=== PATIENT | female | born 1985 | race Caucasian/White ===

== ENCOUNTER → 2018-06-03 | Outpatient (CLI) | payer MEDICAID ==
[2015-06-14 14:25] VITALS: BMI 33.4
[~2018-06-03] MED LIST: ALB18R INH; ALBU2.5V36 IH; ALBU2.5V36 INH; ALP1 PO; AMOX-362 PO; AMPH10TA20 PO; ARIP2TAB9 PO; AZI250 PO; AZM25R INH; BENZ1 PO; BUP150 PO; BUP75 PO; BUPR-126 PO; BUPR-474 PO; BUPR200T18 PO; BUPXL150 PO; CEP500 PO; CHOL10005 PO; CIPR-344 PO; DIV500 PO; DIVA-1 PO; DIVA500T47 PO; DIVA500T98 PO; DIVSR125 PO; DOCU-416 PO; DOCU100T19 PO; DOCU240C67 PO; DUONEB INH; FLUT1DIS28 IH; GUAI-334 PO; HYDR-653 PO; HYDR25CA83 PO; HYDR50CA47 PO; IBU200 PO; IBU800 PO; IBUP600T22 PO; IBUP800T37 PO; IMITREX PO; IOPAMIDOL 76% 75 ML INFUS BTL 75 ML ONE; LAMO100T56 PO; LAMO50TA PO; LAMOT150PT PO; LEVO100T95 PO; LEVO25TA57 PO; LEVO75TA68 PO; LOR05 PO; LOR10 PO; LOR5/325 PO; LURA20TA PO; MIRT-1 PO; MULT-7; MULT-865 PO; NO ROUTINE MEDS; OLAN10TA21 PO; OLAN5TAB25 PO; ONDA4TAB PO; OXYC-865 PO; OXYC-944 PO; PARO-242 PO; PENI-24 PO; PER PO; PHEN200T32 PO; PRE20 PO; PRED20TA6 PO; PREN-85 PO; PROM-110 PO; ROBC PO; SULF-198 PO; TOPI-120 PO; TRAM-420 PO; TRAZ50TA34 PO
--- NOTE | 2018-06-03 12:22 | RADIOLOGY IMAGING REPORT ---
FAC[place] [facility] [place]IENT NAME: Justine Palomino : 1985 MR: [id number] V: [id number] EXAM DATE: ORDERING PHYSICIAN: BRITNEY AYERS TECHNOLOGIST: Location: [facility] - [place] Patient: Justine Palomino : 1985 Visit/Account:[id number] Date of Sevice: 06/03/2018 ABDOMEN/PELVIS WITH CONTRAST HISTORY: Abdominal pain, abnormal weight loss TECHNIQUE: CT abdomen and pelvis with intravenous contrast. Contiguous axial images of the abdomen and pelvis was performed from the lung bases to the symphysis pubis. One of the following dose optimization techniques was utilized in the performance of this exam: Autom ated exposure control; adjustment of the mA and/or kV according to the patient's size; or use of an i terative reconstruction technique. Specific details can be referenced in the facility's radiology C T exam operational policy. CONTRAST: 75 cc of Isovue-370 COMPARISON: CT scan 06/10/2016 FINDINGS: Visualized lung bases: Negative. Hepatobiliary: There is fatty infiltration of the liver. Gallbladder is absent. Bile ducts are dec ompressed. Spleen: Negative. Adrenals: Negative. Kidneys/: Negative. Pancreas: Negative. GI: The appendix is normal. No bowel obstruction or focal inflammation. Vessels/spaces/nodes: Negative. Bones/soft tissues: Asymmetry in the left rectal sling is unchanged from prior exam. IMPRESSION: 1. No acute pathology in the abdomen or pelvis. 2. Fatty infiltration of the liver. Report Dictated By: Antoni Campos MD at 06/03/2018 12:13 PM Report E-Signed By: Antoni Campos MD at 06/03/2018 12:19 PM WSN:[id number]
== END ==
LOC: CT 10:09
PROVIDERS: ATTEND Nurse Practitioner Family
DX: K76.0 Fatty (change of) liver, not elsewhere classified (principal); Z90.49 Acquired absence of other specified parts of digestive tract
CPT/HCPCS: 74177; Q9967

== ENCOUNTER 2018-06-08 18:00 | Emergency (ER) | payer MEDICAID ==
[2015-06-14 14:25] VITALS: Wt 99.8 kg
[~2018-06-08 18:00] MED LIST changes: -MULT-1379 PO
--- NOTE | 2018-06-08 18:08 | ER Report ---
History and Physical Time Seen By MD: 18:05 Hx. of Stated Complaint: ADMITS TO METH USE TODAY - APPEARS ANXIOUS AND TEARFUL. STATES THAT SHE CANNOT MOVE. HPI/ROS CHIEF COMPLAINT: Methamphetamine abuse HISTORY OF PRESENT ILLNESS: 32-year-old female brought in by EMS stating she was unable to move. Patient admits to a drug holiday weekend of doing methamphetamine. She hasn't done it for 2 years. She admits she thought she would just have a fun weekend. I think she did methamphetamine to excess. She's having adverse reaction. She is coming down off methamphetamine after doing her last dose at 5:30 AM. She's not slept in almost 72 hours. Patient's been having panic attacks all day. And hallucinating. Patient denies headache, stiff neck, fever or chills. Patient denies nausea or vomiting. Patient denies other drug use such as marijuana or alcohol. Patient notes no chest pain or shortness of breath. REVIEW OF SYSTEMS: Respiratory: No cough, no dyspnea. Cardiovascular: No chest pain, no palpitations. Gastrointestinal: No vomiting, no abdominal pain. Musculoskeletal: No back pain. Allergies: Coded Allergies: ketorolac (Verified Allergy, Intermediate, SHORTNESS OF BREATH, RASH, 06/21/17) adhesive (Verified Allergy, Mild, 06/21/17) Home Meds Discontinued Reported Medications Albuterol Sulfate 0.083% (ALBUTEROL SULFATE 0.083%) 2.5 Mg/3 Ml Vial.neb, 2.5 MG INH, INH 12/27/16 Albuterol Sulfate (VENTOLIN HFA) 18 Gm Inh, 2 PUFF INH Q4-6H, INH 07/19/16 Fluticasone/Salmeterol (ADVAIR 250-50 DISKUS) 1 Each Disk.w.dev, 1 EACH IH BID 07/19/16 Discontinued Scripts Ibuprofen (IBUPROFEN) 800 Mg Tablet, 800 MG PO Q8H PRN for PAIN, #30 TAB 1 Refill Prov:SAMIRA CORONADO DO 11/10/16 Reviewed Nurses Notes: Yes Old Medical Records Reviewed: Yes Hx Smoking: Yes (ONE PACK A WEEK AND USES A VAPOR ) Smoking Status: Current: Every Day Smoker Exposure to Second Hand Smoke?: No Hx Substance Use Disorder: Yes (IN THE PAST) Hx Alcohol Use: Yes Constitutional Vital Sign - Last 24 Hours 06/08/18 06/08/18 06/08/18 06/08/18 18:02 18:02 19:56 20:36 Temp 97.8 Pulse 136 82 Resp 28 B/P (MAP) 118/102 102/83 (89) Pulse Ox 99 97 O2 Delivery Nasal Cannula Room Air O2 Flow Rate 2.0 06/08/18 06/08/18 06/08/18 06/08/18 21:06 21:51 22:07 22:28 Pulse 94 81 79 94 Resp 16 16 B/P (MAP) 115/79 (91) 105/75 (85) 107/75 (86) 99/74 (82) Pulse Ox 94 96 96 93 O2 Delivery Room Air Room Air Room Air Room Air 06/08/18 06/09/18 06/09/18 22:44 00:01 00:31 Pulse 80 75 Resp 16 B/P (MAP) 98/63 (75) 105/72 (83) 113/62 (79) Pulse Ox 94 86 90 O2 Delivery Room Air Room Air Room Air Physical Exam Vital signs stable, afebrile, pulse ox normal General Appearance: The patient is alert, has no immediate need for airway protection and no current signs of toxicity., Mild agitation with rambling speech. Patient however states she's relaxed. HEENT: Pupils equal and round no injection. TMs normal, oropharynx without redness or exudate, mucous. Membranes are moist. No evidence of meth periodontal disease. Respiratory: Chest is non tender, lungs are clear to auscultation. No wheezing or rails Cardiac: regular rate and rhythm Gastrointestinal: Abdomen is soft and non tender, no masses, bowel sounds normal. Musculoskeletal: Neck: Neck is supple and non tender. Extremities have full range of motion and are non tender. Skin: No rashes or lesions. DIFFERENTIAL DIAGNOSIS: After history and physical exam differential diagnosis was considered for depression including functional and major depression, situational depression, medication side effect, polar disorder, schizophrenia, hallucinations, substance withdrawal drugs and alcohol abuse. Medical Decision Making Data Points Result Diagram: 06/08/18175406/08/181754 Laboratory Hematology Test 06/08/18 17:55 06/08/18 23:39 Red Blood Count 5.71 M/uL (4.17-5.56) Mean Corpuscular Volume 94.1 fL (80.0-96.0) Mean Corpuscular Hemoglobin 33.4 pg (26.0-33.0) Mean Corpuscular Hemoglobin Concent 35.4 g/dL (32.0-36.0) Red Cell Distribution Width 12.6 % (11.5-14.5) Mean Platelet Volume 9.2 fL (7.2-11.1) Neutrophils (%) (Auto) 66.6 % (39.4-72.5) Lymphocytes (%) (Auto) 23.0 % (17.6-49.6) Monocytes (%) (Auto) 6.3 % (4.1-12.4) Eosinophils (%) (Auto) 3.6 % (0.4-6.7) Basophils (%) (Auto) 0.5 % (0.3-1.4) Nucleated RBC Relative Count (auto) 0.2 /100WBC Neutrophils # (Auto) 9.0 K/uL (2.0-7.4) Lymphocytes # (Auto) 3.1 K/uL (1.3-3.6) Monocytes # (Auto) 0.9 K/uL (0.3-1.0) Eosinophils # (Auto) 0.5 K/uL (0.0-0.5) Basophils # (Auto) 0.1 K/uL (0.0-0.1) Nucleated RBC Absolute Count (auto) 0.03 K/uL Sodium Level 141 mmol/L (137-145) Potassium Level 3.3 mmol/L (3.5-5.0) Chloride Level 103 mmol/L (98-107) Carbon Dioxide Level 23 mmol/L (22-31) Blood Urea Nitrogen 11 mg/dl (7-18) Creatinine 1.00 mg/dl (0.52-1.04) Glomerular Filtration Rate Calc > 60.0 Random Glucose 110 mg/dl (75-110) Calcium Level 10.3 mg/dl (8.4-10.2) Total Bilirubin 3.3 mg/dl (0.2-1.3) Aspartate Amino Transf (AST/SGOT) 35 U/L (0-35) Alanine Aminotransferase (ALT/SGPT) 57 U/L (0-56) Alkaline Phosphatase 111 U/L (0-126) Troponin I < 0.012 ng/ml Total Protein 9.1 g/dl (6.3-8.2) Albumin 5.0 g/dl (3.5-5.0) Urine Color Jayna Urine Clarity Slightly-cloudy Urine pH 5.0 pH (4.8-9.5) Urine Specific [place] 1.024 Urine Protein 30 mg/dL (NEGATIVE) Urine Glucose (UA) Negative mg/dL (NEGATIVE) Urine Ketones 20 mg/dL (NEGATIVE) Urine Blood Negative (NEGATIVE) Urine Nitrite Negative (NEGATIVE) Urine Bilirubin Negative (NEGATIVE) Urine Urobilinogen 2.0 mg/dL (0.2-1.9) Urine Leukocyte Esterase Negative (NEGATIVE) Urine RBC <1 /HPF (0-2/HPF) Urine WBC 2 /HPF (0-5/HPF) Urine Squamous Epithelial Cells Many /LPF (</=FEW) Urine Bacteria Few /HPF (NONE-FEW) Urine Hyaline Casts Many /LPF (NONE-FEW) Urine Mucus Few /HPF (NONE-FEW) Urine Opiates Screen Negative Urine Barbiturates Screen Negative Ur Tricyclic Antidepressants Screen Negative Urine Phencyclidine Screen Negative Urine Amphetamines Screen Positive Urine Benzodiazepines Screen Positive Urine Cocaine Screen Negative Urine Cannabinoids Screen Negative Chemistry Test 06/08/18 17:55 06/08/18 23:39 White Blood Count 13.6 k/uL (4.5-11.0) Red Blood Count 5.71 M/uL (4.17-5.56) Hemoglobin 19.0 g/dL (12.0-16.0) Hematocrit 53.7 % (34.0-47.0) Mean Corpuscular Volume 94.1 fL (80.0-96.0) Mean Corpuscular Hemoglobin 33.4 pg (26.0-33.0) Mean Corpuscular Hemoglobin Concent 35.4 g/dL (32.0-36.0) Red Cell Distribution Width 12.6 % (11.5-14.5) Platelet Count 311 K/uL (150-450) Mean Platelet Volume 9.2 fL (7.2-11.1) Neutrophils (%) (Auto) 66.6 % (39.4-72.5) Lymphocytes (%) (Auto) 23.0 % (17.6-49.6) Monocytes (%) (Auto) 6.3 % (4.1-12.4) Eosinophils (%) (Auto) 3.6 % (0.4-6.7) Basophils (%) (Auto) 0.5 % (0.3-1.4) Nucleated RBC Relative Count (auto) 0.2 /100WBC Neutrophils # (Auto) 9.0 K/uL (2.0-7.4) Lymphocytes # (Auto) 3.1 K/uL (1.3-3.6) Monocytes # (Auto) 0.9 K/uL (0.3-1.0) Eosinophils # (Auto) 0.5 K/uL (0.0-0.5) Basophils # (Auto) 0.1 K/uL (0.0-0.1) Nucleated RBC Absolute Count (auto) 0.03 K/uL Glomerular Filtration Rate Calc > 60.0 Calcium Level 10.3 mg/dl (8.4-10.2) Total Bilirubin 3.3 mg/dl (0.2-1.3) Aspartate Amino Transf (AST/SGOT) 35 U/L (0-35) Alanine Aminotransferase (ALT/SGPT) 57 U/L (0-56) Alkaline Phosphatase 111 U/L (0-126) Troponin I < 0.012 ng/ml Total Protein 9.1 g/dl (6.3-8.2) Albumin 5.0 g/dl (3.5-5.0) Urine Color Jayna Urine Clarity Slightly-cloudy Urine pH 5.0 pH (4.8-9.5) Urine Specific [place] 1.024 Urine Protein 30 mg/dL (NEGATIVE) Urine Glucose (UA) Negative mg/dL (NEGATIVE) Urine Ketones 20 mg/dL (NEGATIVE) Urine Blood Negative (NEGATIVE) Urine Nitrite Negative (NEGATIVE) Urine Bilirubin Negative (NEGATIVE) Urine Urobilinogen 2.0 mg/dL (0.2-1.9) Urine Leukocyte Esterase Negative (NEGATIVE) Urine RBC <1 /HPF (0-2/HPF) Urine WBC 2 /HPF (0-5/HPF) Urine Squamous Epithelial Cells Many /LPF (</=FEW) Urine Bacteria Few /HPF (NONE-FEW) Urine Hyaline Casts Many /LPF (NONE-FEW) Urine Mucus Few /HPF (NONE-FEW) Urine Opiates Screen Negative Urine Barbiturates Screen Negative Ur Tricyclic Antidepressants Screen Negative Urine Phencyclidine Screen Negative Urine Amphetamines Screen Positive Urine Benzodiazepines Screen Positive Urine Cocaine Screen Negative Urine Cannabinoids Screen Negative Toxicology Test 06/08/18 23:39 Urine Opiates Screen Negative Urine Barbiturates Screen Negative Ur Tricyclic Antidepressants Screen Negative Urine Phencyclidine Screen Negative Urine Amphetamines Screen Positive Urine Benzodiazepines Screen Positive Urine Cocaine Screen Negative Urine Cannabinoids Screen Negative Urinalysis Test 06/08/18 23:39 Urine Color Jayna Urine Clarity Slightly-cloudy Urine pH 5.0 pH (4.8-9.5) Urine Specific [place] 1.024 Urine Protein 30 mg/dL (NEGATIVE) Urine Glucose (UA) Negative mg/dL (NEGATIVE) Urine Ketones 20 mg/dL (NEGATIVE) Urine Blood Negative (NEGATIVE) Urine Nitrite Negative (NEGATIVE) Urine Bilirubin Negative (NEGATIVE) Urine Urobilinogen 2.0 mg/dL (0.2-1.9) Urine Leukocyte Esterase Negative (NEGATIVE) Urine RBC <1 /HPF (0-2/HPF) Urine WBC 2 /HPF (0-5/HPF) Urine Squamous Epithelial Cells Many /LPF (</=FEW) Urine Bacteria Few /HPF (NONE-FEW) Urine Hyaline Casts Many /LPF (NONE-FEW) Urine Mucus Few /HPF (NONE-FEW) EKG/Imaging EKG Interpretation 12 lead EK Rhythm: normal sinus rhythm [place]: normal QRS: normal ST segments: normal, no evidence of ischemia or dysrhythmia Imaging Results: CT scan of the head without contrast was obtained. The results of the study are no acute findings. The study was read by the radiologist. I viewed the images myself on the PACS system. ED Course/Re-evaluation Clinical Indication for ER IV: Hydration, IV Access ED Course Patient was admitted to an examination room by EMS. H&P was done. The differential diagnoses was considered. On clinical examination. Patient has a nonfocal neurologic examination. She is agitated and have an anxiety. Likely withdrawals from methamphetamine. And insomnia and not sleeping for nearly 72 hours. Patient was treated with Ativan 1 mg IV and 1 L of saline. Diagnostic laboratory studies are unremarkable. Patient's troponin was normal. She will be discharged home with Ativan 1 mg 2 to take tonight to help her sleep. And treat her anxiety and withdrawals from methamphetamine. Patient continued to hallucinate. She was medicated with Zyprexa 5 mg 2 and observed for several more hours. She did ambulate with altering gait. A CT scan of her head was performed to rule out occult pathology. The study was unremarkable. After proximal to 6 hours. Patient was discharged home in the care of her boyfriend and her friend. Decision to Disposition Date: Jun 08, 2018 Decision to Disposition Time: 18:28 Depart Departure Latest Vital Signs Vital Signs Date Time Temp Pulse Resp B/P (MAP) Pulse Ox O2 Delivery O2 Flow Rate FiO2 06/09/18 00:31 16 113/62 (79) 90 Room Air 06/09/18 00:01 75 06/08/18 19:56 97.8 06/08/18 18:02 2.0 Impression: Primary Impression: Methamphetamine abuse Additional Impression: Panic attack Condition: Improved Disposition: HOME OR SELF-CARE Referrals: SAMIRA CORONADO DO (PCP) New Scripts No Active Prescriptions or Reported Meds Patient Instructions: Methamphetamine Abuse (ED) Additional Instructions: Follow-up with [facility] [phone] [facility] Problem Qualifiers CORDELL BROUSSARD DO Jun 08, 2018 18:08
[2018-06-08] MEDS ORDERED: LORazepam 1 MG TAB PO ONE ×2 (18:10→18:55)
[2018-06-08 18:23] LABS: PLATELET COUNT, AUTOMATED 311 K/uL (150-450)
[2018-06-08] MEDS ORDERED: LORazepam 2 MG/ML VIAL IVP ONE (18:25)
--- NOTE | 2018-06-08 18:36 | EKG ---
FACILITY: [facility] - [place] PATIENT NAME: ELISABETH JOSE : [id number] MR: [id number] V: [id number] EXAM DATE: ORDERING PHYSICIAN: CORDELL BROUSSARD TECHNOLOGIST: MOISES Test Reason : METH Blood Pressure : / mmHG Vent. Rate : 075 BPM Atrial Rate : 075 BPM P-R Int : 166 ms QRS Dur : 088 ms QT Int : 408 ms P-R-T Axes : 065 -29 047 degrees QTc Int : 455 ms Normal sinus rhythm Normal ECG When compared with ECG of 11-JUN-2015 06:10, No significant change was found Confirmed by BELLA PLATA ([id number]) on 06/09/2018 6:18:03 AM Referred By: SHANAE Confirmed By:BELLA PLATA
--- NOTE | 2018-06-08 21:48 | RADIOLOGY IMAGING REPORT ---
FACILITY: [facility] - [place] PATIENT NAME: Justine Palomino : 1985 MR: [id number] V: [id number] EXAM DATE: ORDERING PHYSICIAN: CORDELL BROUSSARD TECHNOLOGIST: Location: [facility] Patient: Justine Palomino : 1985 Visit/Account:[id number] Date of Sevice: 06/08/2018 EXAMINATION: CT HEAD WITHOUT CONTRAST COMPARISON: None available HISTORY: Meth abuse. Can't walk. PROCEDURE: Noncontrast CT from the vertex through the skull base. One of the following dose optimizat ion techniques was utilized in the performance of this exam: Automated exposure control; adjustment o f the mA and/or kV according to the patient's size; or use of an iterative reconstruction technique. Specific details can be referenced in the facility's radiology CT exam operational policy. FINDINGS: Brain volume: Age-appropriate. Hemorrhage/extra-axial fluid: None. Mass effect/midline shift/edema: None. Ischemia: Cuellar-white differentiation is preserved. Ventricles and basal cisterns: Within normal limits. Posterior fossa: Negative. Vessels: Negative. Calvarium, skull base, and scalp: Negative. Visualized sinuses and orbits: Within normal limits. IMPRESSION: Negative noncontrast head CT. Report Dictated By: Kwesi Gamez MD at 06/08/2018 9:37 PM Report E-Signed By: Kwesi Gamez MD at 06/08/2018 9:44 PM WSN:[id number]
[2018-06-08] MEDS ORDERED: OLANZapine ZYDIS ODT 5MG TABDP PO ONE ×2 (22:15→23:15)
[2018-06-08] MEDS ORDERED: NS(*) 0.9% 1000 ML BAG 1,000 ML IV ONE (22:15)
[2018-06-09 00:31] VITALS: BP 113/62
[2018-06-10] MEDS ORDERED: ALB18R INH (13:44)
== END 2018-06-09 00:38 | disposition home or self-care (01) ==
LOC: ER 18:10
DX: F15.10 Other stimulant abuse, uncomplicated (principal); F41.0 Panic disorder [episodic paroxysmal anxiety]
CPT/HCPCS: 70450; 80305; 81001; 84484; 85025; 93005; 96361; 96374; 99284; J2060; J7030; 82040; 82247; 82310; 82374; 82435; 82565; 82947; 84075; 84132; 84155; 84295; 84450; 84460; 84520

== ENCOUNTER → 2018-06-08 | Outpatient (CLI) | payer MEDICAID ==
[2015-06-14 14:25] VITALS: BMI 33.4
[~2018-06-08] MED LIST changes: -IOPAMIDOL 76% 75 ML INFUS BTL 75 ML ONE; +MULT-1379 PO
== END ==
LOC: AMB 17:33
PROVIDERS: ATTEND Nurse Practitioner
DX: R00.0 Tachycardia, unspecified (principal); R41.0 Disorientation, unspecified; F15.121 Other stimulant abuse with intoxication delirium
CPT/HCPCS: A0425; A0427

== ENCOUNTER 2018-06-10 00:02 | Emergency (ER) | payer MEDICAID ==
[2015-06-14 14:25] VITALS: Wt 99.8 kg
--- NOTE | 2018-06-10 00:15 | ER Report ---
History and Physical Time Seen By MD: 00:11 HPI/ROS CHIEF COMPLAINT: suicidal ideation, emergency care home. HISTORY OF PRESENT ILLNESS: This is a 32 year old female. She is brought to the ER by [facility] department. They did a welfare check when contacted by her friend. She had sent a text to her friend saying she was going to kill herself. Multiple written notes indicating this as well. The patient tried to cut her wrists, but superficial. She says the knife was too dull. Prior suicide attempt by attempted overdose of Seroquel. This last weekend, had used methamphetamine, just trying to have fun weekend. Denies other drugs. Had a drink of alcohol a few hours ago, but not much. She does smoke. No current medications. No health problems, other than depression. Still feeling suicidal, but at the same time glad she did not commit suicide. Allergies: Coded Allergies: ketorolac (Verified Allergy, Intermediate, SHORTNESS OF BREATH, RASH, 06/10/18) adhesive (Verified Allergy, Mild, 06/10/18) Home Meds Discontinued Reported Medications Albuterol Sulfate 0.083% (ALBUTEROL SULFATE 0.083%) 2.5 Mg/3 Ml Vial.neb, 2.5 MG INH, INH 12/27/16 Albuterol Sulfate (VENTOLIN HFA) 18 Gm Inh, 2 PUFF INH Q4-6H, INH 07/19/16 Fluticasone/Salmeterol (ADVAIR 250-50 DISKUS) 1 Each Disk.w.dev, 1 EACH IH BID 07/19/16 Discontinued Scripts Ibuprofen (IBUPROFEN) 800 Mg Tablet, 800 MG PO Q8H PRN for PAIN, #30 TAB 1 Refill Prov:SAMIRA CORONADO DO 11/10/16 Reviewed Nurses Notes: Yes Hx Smoking: Yes (ONE PACK A WEEK AND USES A VAPOR ) Smoking Status: Current: Every Day Smoker Exposure to Second Hand Smoke?: No Hx Substance Use Disorder: Yes (IN THE PAST) Hx Alcohol Use: Yes Constitutional Vital Sign - Last 24 Hours 06/10/18 06/10/18 06/10/18 06/10/18 00:12 00:13 00:30 00:32 Temp 97.8 Pulse 99 90 Resp 14 B/P (MAP) 123/86 (98) 123/86 116/78 (91) Pulse Ox 94 95 O2 Delivery Room Air 06/10/18 06/10/18 06/10/18 06/10/18 00:47 01:00 01:02 01:17 Pulse 99 89 88 B/P (MAP) 116/77 (90) Pulse Ox 95 94 97 06/10/18 06/10/18 01:30 01:32 B/P (MAP) 118/85 (96) Pulse Ox 96 Physical Exam General Appearance: The patient is alert, has no immediate need for airway protection and no current signs of toxicity. Eyes: Pupils equal and round no injection. ENT: Normal oral mucosa. Moist mucous membranes. Neck: Neck is supple and non tender. Respiratory: Chest is non tender, lungs are clear to auscultation. Cardiac: regular rate and rhythm Gastrointestinal: Abdomen is soft and non tender, no masses, bowel sounds normal. Musculoskeletal: Extremities have full range of motion. Skin: Has superficial cuts on her left wrist. DIFFERENTIAL DIAGNOSIS: After history and physical exam differential diagnosis was considered for suicidal ideation. Medical Decision Making Data Points Result Diagram: 06/10/18 0020 06/10/18 0020 Laboratory Hematology Test 06/10/18 00:20 Red Blood Count 4.82 M/uL (4.17-5.56) Mean Corpuscular Volume 94.0 fL (80.0-96.0) Mean Corpuscular Hemoglobin 33.5 pg (26.0-33.0) Mean Corpuscular Hemoglobin Concent 35.6 g/dL (32.0-36.0) Red Cell Distribution Width 12.5 % (11.5-14.5) Mean Platelet Volume 9.2 fL (7.2-11.1) Neutrophils (%) (Auto) 65.5 % (39.4-72.5) Lymphocytes (%) (Auto) 24.8 % (17.6-49.6) Monocytes (%) (Auto) 5.6 % (4.1-12.4) Eosinophils (%) (Auto) 3.7 % (0.4-6.7) Basophils (%) (Auto) 0.4 % (0.3-1.4) Nucleated RBC Relative Count (auto) 0.0 /100WBC Neutrophils # (Auto) 7.2 K/uL (2.0-7.4) Lymphocytes # (Auto) 2.7 K/uL (1.3-3.6) Monocytes # (Auto) 0.6 K/uL (0.3-1.0) Eosinophils # (Auto) 0.4 K/uL (0.0-0.5) Basophils # (Auto) 0.0 K/uL (0.0-0.1) Nucleated RBC Absolute Count (auto) 0.00 K/uL Urine Color Yellow Urine Clarity Clear Urine pH 5.0 pH (4.8-9.5) Urine Specific Newberry 1.014 Urine Protein Negative mg/dL (NEGATIVE) Urine Glucose (UA) Negative mg/dL (NEGATIVE) Urine Ketones 20 mg/dL (NEGATIVE) Urine Blood Small (NEGATIVE) Urine Nitrite Negative (NEGATIVE) Urine Bilirubin Negative (NEGATIVE) Urine Urobilinogen Negative mg/dL (0.2-1.9) Urine Leukocyte Esterase Negative (NEGATIVE) Urine RBC 1 /HPF (0-2/HPF) Urine WBC 1 /HPF (0-5/HPF) Urine Squamous Epithelial Cells Many /LPF (</=FEW) Urine Transitional Epithelial Cells Few /LPF (NONE-FEW) Urine Bacteria Negative /HPF (NONE-FEW) Urine Mucus Few /HPF (NONE-FEW) Urine HCG, Qualitative Negative (NEGATIVE) Sodium Level 140 mmol/L (137-145) Potassium Level 3.3 mmol/L (3.5-5.0) Chloride Level 108 mmol/L (98-107) Carbon Dioxide Level 20 mmol/L (22-31) Blood Urea Nitrogen 7 mg/dl (7-18) Creatinine 0.80 mg/dl (0.52-1.04) Glomerular Filtration Rate Calc > 60.0 Random Glucose 97 mg/dl (75-110) Calcium Level 9.3 mg/dl (8.4-10.2) Magnesium Level 2.1 mg/dl (1.7-2.2) Total Bilirubin 2.2 mg/dl (0.2-1.3) Aspartate Amino Transf (AST/SGOT) 26 U/L (0-35) Alanine Aminotransferase (ALT/SGPT) 48 U/L (0-56) Alkaline Phosphatase 87 U/L (0-126) Total Protein 7.2 g/dl (6.3-8.2) Albumin 4.1 g/dl (3.5-5.0) Salicylates Level < 10 mg/L Salicylate Last Dose Date unk Urine Opiates Screen Negative Acetaminophen Level < 10 ug/ml Urine Barbiturates Screen Negative Ur Tricyclic Antidepressants Screen Negative Urine Phencyclidine Screen Negative Urine Amphetamines Screen Positive Urine Benzodiazepines Screen Positive Urine Cocaine Screen Negative Urine Cannabinoids Screen Negative Serum Alcohol < 10 mg/dl Chemistry Test 06/10/18 00:20 White Blood Count 11.0 k/uL (4.5-11.0) Red Blood Count 4.82 M/uL (4.17-5.56) Hemoglobin 16.2 g/dL (12.0-16.0) Hematocrit 45.3 % (34.0-47.0) Mean Corpuscular Volume 94.0 fL (80.0-96.0) Mean Corpuscular Hemoglobin 33.5 pg (26.0-33.0) Mean Corpuscular Hemoglobin Concent 35.6 g/dL (32.0-36.0) Red Cell Distribution Width 12.5 % (11.5-14.5) Platelet Count 236 K/uL (150-450) Mean Platelet Volume 9.2 fL (7.2-11.1) Neutrophils (%) (Auto) 65.5 % (39.4-72.5) Lymphocytes (%) (Auto) 24.8 % (17.6-49.6) Monocytes (%) (Auto) 5.6 % (4.1-12.4) Eosinophils (%) (Auto) 3.7 % (0.4-6.7) Basophils (%) (Auto) 0.4 % (0.3-1.4) Nucleated RBC Relative Count (auto) 0.0 /100WBC Neutrophils # (Auto) 7.2 K/uL (2.0-7.4) Lymphocytes # (Auto) 2.7 K/uL (1.3-3.6) Monocytes # (Auto) 0.6 K/uL (0.3-1.0) Eosinophils # (Auto) 0.4 K/uL (0.0-0.5) Basophils # (Auto) 0.0 K/uL (0.0-0.1) Nucleated RBC Absolute Count (auto) 0.00 K/uL Urine Color Yellow Urine Clarity Clear Urine pH 5.0 pH (4.8-9.5) Urine Specific Newberry 1.014 Urine Protein Negative mg/dL (NEGATIVE) Urine Glucose (UA) Negative mg/dL (NEGATIVE) Urine Ketones 20 mg/dL (NEGATIVE) Urine Blood Small (NEGATIVE) Urine Nitrite Negative (NEGATIVE) Urine Bilirubin Negative (NEGATIVE) Urine Urobilinogen Negative mg/dL (0.2-1.9) Urine Leukocyte Esterase Negative (NEGATIVE) Urine RBC 1 /HPF (0-2/HPF) Urine WBC 1 /HPF (0-5/HPF) Urine Squamous Epithelial Cells Many /LPF (</=FEW) Urine Transitional Epithelial Cells Few /LPF (NONE-FEW) Urine Bacteria Negative /HPF (NONE-FEW) Urine Mucus Few /HPF (NONE-FEW) Urine HCG, Qualitative Negative (NEGATIVE) Glomerular Filtration Rate Calc > 60.0 Calcium Level 9.3 mg/dl (8.4-10.2) Magnesium Level 2.1 mg/dl (1.7-2.2) Total Bilirubin 2.2 mg/dl (0.2-1.3) Aspartate Amino Transf (AST/SGOT) 26 U/L (0-35) Alanine Aminotransferase (ALT/SGPT) 48 U/L (0-56) Alkaline Phosphatase 87 U/L (0-126) Total Protein 7.2 g/dl (6.3-8.2) Albumin 4.1 g/dl (3.5-5.0) Salicylates Level < 10 mg/L Salicylate Last Dose Date unk Urine Opiates Screen Negative Acetaminophen Level < 10 ug/ml Urine Barbiturates Screen Negative Ur Tricyclic Antidepressants Screen Negative Urine Phencyclidine Screen Negative Urine Amphetamines Screen Positive Urine Benzodiazepines Screen Positive Urine Cocaine Screen Negative Urine Cannabinoids Screen Negative Serum Alcohol < 10 mg/dl Toxicology Test 06/10/18 00:20 Salicylates Level < 10 mg/L Salicylate Last Dose Date unk Urine Opiates Screen Negative Acetaminophen Level < 10 ug/ml Urine Barbiturates Screen Negative Ur Tricyclic Antidepressants Screen Negative Urine Phencyclidine Screen Negative Urine Amphetamines Screen Positive Urine Benzodiazepines Screen Positive Urine Cocaine Screen Negative Urine Cannabinoids Screen Negative Serum Alcohol < 10 mg/dl Urinalysis Test 06/10/18 00:20 Urine Color Yellow Urine Clarity Clear Urine pH 5.0 pH (4.8-9.5) Urine Specific Newberry 1.014 Urine Protein Negative mg/dL (NEGATIVE) Urine Glucose (UA) Negative mg/dL (NEGATIVE) Urine Ketones 20 mg/dL (NEGATIVE) Urine Blood Small (NEGATIVE) Urine Nitrite Negative (NEGATIVE) Urine Bilirubin Negative (NEGATIVE) Urine Urobilinogen Negative mg/dL (0.2-1.9) Urine Leukocyte Esterase Negative (NEGATIVE) Urine RBC 1 /HPF (0-2/HPF) Urine WBC 1 /HPF (0-5/HPF) Urine Squamous Epithelial Cells Many /LPF (</=FEW) Urine Transitional Epithelial Cells Few /LPF (NONE-FEW) Urine Bacteria Negative /HPF (NONE-FEW) Urine Mucus Few /HPF (NONE-FEW) Urine HCG, Qualitative Negative (NEGATIVE) ED Course/Re-evaluation ED Course Discussed with Dr. Tapia. Emergency care home upheld, see other note. Decision to Disposition Date: Jun 10, 2018 Decision to Disposition Time: 01:10 Depart Departure Latest Vital Signs Vital Signs Date Time Temp Pulse Resp B/P (MAP) Pulse Ox O2 Delivery O2 Flow Rate FiO2 06/10/18 01:32 96 06/10/18 01:30 118/85 (96) 06/10/18 01:17 88 06/10/18 00:13 97.8 14 Room Air Impression: Primary Impression: Suicidal ideation Additional Impression: Self-harming behavior Condition: Condition Unchanged Disposition: XFER TO [facility] Referrals: SAMIRA CORONADO DO (PCP) New Scripts No Active Prescriptions or Reported Meds Problem Qualifiers RICHELLE MANUEL MD Jun 10, 2018 00:15
[2018-06-10 00:54] LABS: PLATELET COUNT, AUTOMATED 236 K/uL (150-450)
[2018-06-10 01:30] VITALS: BP 118/85
--- NOTE | 2018-06-10 05:30 | BHS - Psychiatric Evaluation ---
ER - Title 25 MHE Evaluation Title 25 Evaluation Patient Detained By: Law Enforcement Referral Source: patient history, notes, law enforcement Date Patient Detained: Jun 10, 2018 Time Patient Detained: 00:24 Date Assisted Expires: Jun 13, 2018 Time Assisted Expires: 00:24 Legal Status: Police Hold: No Legal Status: Residence: [facility] Resident Assessment Data Provided By: Patient, Law Enforcement HPI/ROS: CHIEF COMPLAINT: suicidal ideation, emergency custodial. HISTORY OF PRESENT ILLNESS: This is a 32 year old female. She is brought to the ER by [place] [employer] [facility]. They did a welfare check when contacted by her friend. She had sent a text to her friend saying she was going to kill herself. Multiple written notes indicating this as well. The patient tried to cut her wrists, but superficial. She says the knife was too dull. Prior suicide attempt by attempted overdose of Seroquel. This last weekend, had used methamphetamine, just trying to have fun weekend. Denies other drugs. Had a drink of alcohol a few hours ago, but not much. She does smoke. No current medications. No health problems, other than depression. Still feeling suicidal, but at the same time glad she did not commit suicide. Admit due to SI or Attempt: No Suicide Plan: Has Plan with Access Alcohol or Drugs Involved: Yes Current Intoxication Info: meth binge over the weekend Is Patient Info Reliable: Yes Is Collateral Info Reliable: Yes Mental Status Exam General Appearance: Cooperative, Psychomotor Retardation Speech: Delayed Mood: Dysthmic/Depressed Affect: Sad Thought Process: Flight of Ideas Thought Content: Suicidal Ideation; No Homicidal Ideation Sensorium: Clear Cognition: Alert & Oriented-Person, Alert & Oriented-Place, Alert & Oriented- Time, Yswqq-Uevdrkrj-Jqycysqmt Insight Judgment: Fair Current Risk & History Current Dangerous Risk Assessm: Current Suicide Ideation, Self-Injurious Behaviors Past Dangerous Risk Assessm: Suicide Ideation-last 6mo, Self-Injurious Behaviors Previous Suicide Attempt: Past - High Lethality Previous Psychiatric Illness: Yes Previous Psychiatric Treatment: Yes Risk Assessment & Disposition Evaluated Risk Assessment: still with suicidal thoughts, notes, self harm behaviors, prior attempt, drug abuse Impression: Primary Impression: Suicidal ideation Additional Impression: Self-harming behavior Meets Mental Illness Req.: Yes Meets Dangerousness Req.: Yes Emergency Assisted to be: Upheld Date of Decision: Jun 10, 2018 Time of Decision: 01:10 Patient is Medically Stable at: Yes Disposition: [facility] Problem Qualifiers RICHELLE MANUEL MD Jun 10, 2018 05:30
[2018-06-10] MEDS ORDERED: ALB18R INH (13:44)
== END 2018-06-10 01:42 ==
LOC: ER 00:29
DX: R45.851 Suicidal ideations (principal)
CPT/HCPCS: 36415; 80305; 81001; 81025; 83735; 84443; 85025; 99284; G0480; 80320; 80329; 82040; 82247; 82310; 82374; 82435; 82565; 82947; 84075; 84132; 84155; 84295; 84450; 84460; 84520

== ENCOUNTER 2018-06-10 01:30 | Inpatient (IN) | payer MEDICAID ==
[2015-06-14 14:25] VITALS: Ht 162.6 cm; Wt 99.8 kg
[~2018-06-10] VITALS: Ht 162.6 cm; Wt 99.8 kg
[2018-06-10] MEDS ORDERED: ALBUTEROL 8 GM INHALER INH PRN (01:45)
[2018-06-10] MEDS ORDERED: MAG HYD/AL HYD/SIMETH 30ML UDC PO PRN (01:45)
[2018-06-10 02:30] VITALS: BP 118/87
[2018-06-10] MEDS: MULTIVITAMINS TAB PO SCH (08:08)
[2018-06-10] MEDS ORDERED: WATER STERILE 10 ML VIAL IM ONLY PRN (11:00)
[2018-06-10] MEDS ORDERED: diphenhydrAMINE 50 MG/ML VIAL IM PRN (11:00)
[2018-06-10] MEDS ORDERED: LORazepam 2 MG/ML VIAL IM PRN (11:00)
[2018-06-10 13:19] VITALS: BP 118/68
[2018-06-10] MEDS ORDERED: ALB18R INH (13:44)
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
[2018-06-10 21:47] VITALS: BP 108/68
[2018-06-11 05:57] VITALS: BP 94/54
[2018-06-11] MEDS: MULTIVITAMINS TAB PO SCH (08:16)
--- NOTE | 2018-06-11 12:09 | BHS Progress Note ---
[facility] - Subjective Progress Notes Subjective Patient now reporting her suicidal ideation is resolved. Patient reports overall doing well until brief relapse into methamphetamine use. Patient states she has been free of prescribed medications, historically aimed at stabilizing her mood for 2 years, and has done well as long as she was not abusing substances or alcohol. Will continue on detainment in this patient who has some underlying borderline traits if not disorder. Will not schedule a hearing, but will plan on discharge on Saturday, at end of detainment. Continue to engage in DBT skills. Suicidal Ideation: None Homicidal Ideation: None [facility] - Objective Physical Exam Vital Signs Hematology Test 06/10/18 12:02 Thyroid Stimulating Hormone (TSH) 5.20 uIU/ml (0.46-4.68) Chemistry Test 06/10/18 12:02 Thyroid Stimulating Hormone (TSH) 5.20 uIU/ml (0.46-4.68) Muscle Strength and Tone: WNL Gait and Station: Steady [facility] Medications Reviewed: Side Effects, Benefits of Medication, Risks Allergies Reviewed: Yes Mental Status Exam General Appearance: Casual, Well Groomed, Good Eye Contact, Cooperative, Polite, Good Interaction; No Unkept, No Tearful, No Psychomotor Agitation, No Psychomotor Retardation, No Bizarre Mannerisms, No Tics Speech: Clear, Spontaneous, Normal Rate, Normal Rhythm, Normal Volume, Normal Tone Mood: Dysthmic/Depressed (improving. ) Affect: Full and Appropriate, Calm; No Withdrawn, No Tearful, No Anxious, No Agitated Thought Process: Organized, Logical, Goal Directed; No Loose Associations, No Flight of Ideas Thought Content: No Suicidal Ideation (resolved), No Homicidal Ideation, No Delusions, No Auditory Halllucinations, No Visual Hallucinations, No Thought Broadcasting, No Ideas of Reference, No Obsessions, No Compulsions Sensorium: Clear Cognition: Alert & Oriented-Person, Alert & Oriented-Place, Alert & Oriented- Time, Aapvs-Oxcildet-Hygbxuxal Memory: Immediate, Recent, Remote Intelligence: Below Average Insight Judgment: Poor (limited due to intellect, cluster B triats if not di sorder, and polysubstance use. ) [facility] Assessment and Plan Psmy-dh-Cipm Encounter Date: Jun 11, 2018 Xtyu-ch-Faxw Encounter Time: 10:00 Tobacco Medications: Refused Multpiple Antipsychotics Used: No Problems: (1) Stimulant-induced mood disorder with depressive symptoms Status: Acute (2) Stimulant use disorder Optional Permanent Comment: history of polysubstance use including alcohol Last Edited By: Brad Ahuja on Jun 11, 2018 12:08 Status: Chronic Condition 1. continue treatment. 2. engage in therapy. 3. encourage abstinence upon discharge. BRAD AHUJA MD Jun 11, 2018 12:09
[2018-06-11 12:41] VITALS: BP 112/70
[2018-06-11] MEDS: IBUPROFEN 600 MG TAB PO PRN (23:56)
[2018-06-12 01:05] VITALS: BP 130/95
[2018-06-12] MEDS: MULTIVITAMINS TAB PO SCH (08:17)
--- NOTE | 2018-06-12 12:35 | BHS Progress Note ---
[facility] - Subjective Progress Notes Subjective Patient interacting well today, and still experiencing lethargy from methamphetamine withdrawal. Will continue treatment, patient indicating improved mood today, appetite good, no other concerns. Suicidal Ideation: None Homicidal Ideation: None [facility] - Objective Physical Exam Vital Signs Vital Signs Date Time Temp Pulse Resp B/P (MAP) Pulse Ox O2 Delivery O2 Flow Rate FiO2 06/12/18 01:05 99.3 76 15 130/95 (107) 96 Room Air Hematology Test 06/10/18 12:02 Thyroid Stimulating Hormone (TSH) 5.20 uIU/ml (0.46-4.68) Chemistry Test 06/10/18 12:02 Thyroid Stimulating Hormone (TSH) 5.20 uIU/ml (0.46-4.68) Muscle Strength and Tone: WNL Gait and Station: Steady [facility] Medications Reviewed: Side Effects, Benefits of Medication, Risks Allergies Reviewed: Yes Mental Status Exam General Appearance: Casual, Well Groomed, Good Eye Contact, Cooperative, Polite, Good Interaction; No Unkept, No Tearful, No Psychomotor Agitation, No Psychomotor Retardation, No Bizarre Mannerisms, No Tics Speech: Clear, Spontaneous, Normal Rate, Normal Rhythm, Normal Volume, Normal Tone Mood: Dysthmic/Depressed (improving. ) Affect: Full and Appropriate, Calm; No Withdrawn, No Tearful, No Anxious, No Agitated Thought Process: Organized, Logical, Goal Directed; No Loose Associations, No Flight of Ideas Thought Content: No Suicidal Ideation (resolved), No Homicidal Ideation, No Delusions, No Auditory Halllucinations, No Visual Hallucinations, No Thought Broadcasting, No Ideas of Reference, No Obsessions, No Compulsions Sensorium: Clear Cognition: Alert & Oriented-Person, Alert & Oriented-Place, Alert & Oriented- Time, Poiae-Bpsuihnk-Yironuifl Memory: Immediate, Recent, Remote Intelligence: Below Average Insight Judgment: Poor (limited due to intellect, cluster B triats if not disorder, and polysubstance use. ) [facility] Assessment and Plan Qrde-[id number] Encounter Date: Jun 12, 2018 Tydq-ao-[id number] Encounter Time: 11:00 Tobacco Medications: Refused Multpiple Antipsychotics Used: No Problems: (1) Stimulant-induced mood disorder with depressive symptoms Status: Acute (2) Stimulant use disorder Optional Permanent Comment: history of polysubstance use including alcohol Last Edited By: Brad Ahuja on Jun 11, 2018 12:08 Status: Chronic Condition 1. continue treatment. 2. plan for discharge tomorrow in AM. BRAD AHUJA MD Jun 12, 2018 12:35
[2018-06-12 13:25] VITALS: BP 102/60
[2018-06-12 20:20] VITALS: BP 110/60
[2018-06-12] MEDS: IBUPROFEN 600 MG TAB PO PRN (22:43)
[2018-06-13 06:27] VITALS: BP 96/54
[2018-06-13] MEDS: MULTIVITAMINS TAB PO SCH (08:13)
[2018-06-13] MEDS ORDERED: MULT-1379 PO (08:54)
--- NOTE | 2018-06-13 15:16 | SCHAAF DISCHARGE ---
DATE OF ADMISSION: June 10, 2018 DATE OF DISCHARGE: June 13, 2018 ATTENDING PHYSICIAN Jostin Tapia MD Patient was seen at approximately 0900 hours on the a.m. of 13 June 2018 for note concerning this dictation. FINAL DIAGNOSES 1. Stimulant use disorder, severe. 2. Methamphetamine stimulant-induced mood disorder, considered resolved at time of discharge. 3. History of alcohol use disorder, severe as well. 4. Cluster B personality traits. REASON FOR ADMISSION This is a 32-year-old female who was emergency detained after relapsing into the use of methamphetamine and experiencing significant dysmorphic mood with suicidal thoughts. Patient was admitted without incident. Initially on the unit, patient exhibiting multiple cluster B traits and immaturity, noted to be throwing things in the room. However, this seemed to spontaneously resolve, and the patient then took a more active role in her treatment. Patient verbalized an intention to continue to abstain from methamphetamine, other substances, and alcohol upon discharge. She was not engaging in any parasuicidal behaviors on the unit, and was discharged to home. Please see H and P for full details. PHYSICAL EXAMINATION Please see emergency room note. Notable for: GENERAL: A 32-year-old female in no acute medical distress at time of admission. VITAL SIGNS: Temperature 97.8, pulse 99, respiratory rate 14, blood pressure 123/86 with a pulse oximetry of 94% on room air. At time of discharge from [facility] Unit, vital signs showed temperature 97.6, pulse 75, respiratory rate 20, blood pressure 96/54, and a pulse oximetry of 97% on room air. LABORATORY DATA TSH noted to be 5.20 and trending down from initial reading upon admission of 8.54. This is likely a product of methamphetamine intoxication and recent alcohol use. Toxicology screen was positive for amphetamines and benzodiazepines which patient was prescribed. Negative for any serum alcohol. Urinalysis showed urine ketones present, small urine blood. Negative screen. Chemistry panel notable for total bilirubin 2.2. CBC was overall unremarkable. MENTAL STATUS EXAMINATION AT TIME OF DISCHARGE GENERAL APPEARANCE, BEHAVIOR, AND ATTITUDE: This is a pleasant, cooperative, 32-year-old female at time of discharge, smiling broadly at this provider, making good eye contact with therapist and this provider. No psychomotor agitation or retardation. No bizarre mannerisms or tics. No periods of tearfulness. SPEECH: Within normal limits. Regular rate, rhythm, volume, and tone. MOOD: Described as good. AFFECT: Full and bright. THOUGHT PROCESSES: Logical, goal directed. No loose associations or flight of ideas. THOUGHT CONTENT: Free of auditory or visual hallucinations, ideas of reference, thought broadcastings, delusions, obsessions, compulsions. Patient adamantly denying suicidal or homicidal ideation. SENSORIUM: Clear. COGNITION: Alert and oriented to person, place, time, and situation. MEMORY: Immediate, recent, and remote estimated intact. INTELLIGENCE: Average based on interview. INSIGHT AND JUDGMENT: Considered grossly intact in the absence of alcohol or drug for continued outpatient management. RESULTS OF TESTING Imaging: None. Laboratory data: See above. CONSULTATIONS None. TREATMENT Patient not wanting to re-engage with any medications at this time, and it is notable that patient once considered to suffer from bipolar disorder has been off all medications for a period of two years, this in the absence of alcohol or illicit substance use until recent relapse. Patient did participate in individual and group therapy. HOSPITAL COURSE Patient very calm and cooperative toward the end of her stay, initially demonstrating some cluster B personality traits and a level of immaturity, possibly associated with a below normal intellect. Patient, however, quickly turning this around to take an active role in her treatment. CONDITION OF PATIENT ON DISCHARGE Stable. Considered minimal risk to herself or others and appropriate for outpatient care. DISPOSITION Patient discharged to home. Patient would follow up with outpatient appointments including with motorman/woman as previously scheduled to continue to monitor hepatic concerns. Patient would follow up with mental health and therapist as scheduled as well. Patient would engage with outpatient provider to talk of resuming a medication possibly to help with sleep in the absence of alcohol and drug use. Patient would abstain from Tylenol, alcohol, and all illicit substances. She was given the crisis line should symptoms return. Patient was encouraged to consider residential rehab if necessary. DISCHARGE MEDICATIONS 1. Ventolin inhaler patient had at home. 2. Multivitamin with minerals daily. Risks, benefits, and alternatives of above discharge plan were discussed. Informed consent was given to proceed with the above discharge plan by this competent patient. HELEN
== END 2018-06-13 09:30 | disposition home or self-care (01) | DRG 897 ==
LOC: BHS 01:30
PROVIDERS: ADMIT Psychiatry & Neurology Psychiatry; ATTEND Psychiatry & Neurology Psychiatry
DX: F15.24 Other stimulant dependence with stimulant-induced mood disorder (principal); R45.851 Suicidal ideations; F15.23 Other stimulant dependence with withdrawal; F17.210 Nicotine dependence, cigarettes, uncomplicated; Z62.810 Personal history of physical and sexual abuse in childhood; Z62.811 Personal history of psychological abuse in childhood; Z81.8 Family history of other mental and behavioral disorders; Z88.8 Allergy status to other drugs, medicaments and biological substances
CPT/HCPCS: 36415; 84443; J3535